=== PATIENT | female | born 1965 | race Two or more races ===

== ENCOUNTER 2024-03-07 18:26 | Emergency (ER) | payer BC ==
[2024-03-07] MEDS: cloNIDine HCL 0.1 MG TAB PO ONE (19:30)
[2024-03-07 19:38] VITALS: BP 170/90; PULSE 86; RESP 18; TEMP 99.4; O2SAT 98
[2024-03-07 20:06] LABS: Chloride 103 mmol/L (98-107); Potassium 3.4 mmol/L (3.5-5.1); Sodium 140 mmol/L (136-145)
[2024-03-07 20:07] LABS: Anion Gap 8 (5-15); Carbon Dioxide 29 mmol/L (20-30)
[2024-03-07 20:08] LABS: Calcium 10.2 mg/dL (8.5-10.1)
[2024-03-07 20:09] LABS: Basophils # (auto) 0.1 10 ^3/uL (0-0.2); Basophils % (auto) 0.5 % (0.0-2.0); Eosinophils # (auto) 0.1 10 ^3/uL (0-0.8); Hematocrit 46.1 % (36.0-46.0); Hemoglobin 15.9 g/dL (12.2-16.2); Lymphocytes # (auto) 0.9 10 ^3/uL (0.4-5.4); Lymphocytes % (auto) 8.9 % (10.0-50.0); Mean Corpuscular Hemoglobin 30.1 pg (28.0-32.0); Mean Corpuscular Hgb Conc. 34.4 g/dL (32.0-36.0); Mean Corpuscular Volume 87.6 fL (80.0-100.0); Monocytes # (auto) 0.4 10 ^3/uL (0-1.3); Neutrophils # (auto) 8.9 10 ^3/uL (1.6-8.6); Neutrophils % (auto) 85.6 % (37.0-80.0); Red Blood Cells 5.27 10^6/uL (4.0-5.20); Red Cell Distribution Width 13.6 % (11.8-14.3); White Blood Cell 10.3 10^3/uL (4.4-10.8)
[2024-03-07 20:13] LABS: BUN/Creatinine Ratio 17.5 (10.0-20.0); Blood Urea Nitrogen 11 mg/dL (9-23); Glucose 94 mg/dL (74-106)
[2024-03-07 20:36] LABS: Urine Bacteria FEW /hpf (None Seen); Urine Blood 3+ /uL (Negative); Urine Clarity Turbid (Clear); Urine Color Light-Red (Yellow); Urine Protein, UAD 2+ (Negative); Urine Specific Gravity 1.004 (1.001-1.035); Urine Urobilinogen Normal (Negative); Urine WBC 85 /hpf (0 - 5)
[2024-03-07] MEDS: cefTRIAXone SOD 1,000 MG VL IM ONE (21:12)
[2024-03-07] MEDS: NITROFURANTOIN 100 mg CAP PO ONE (21:12)
[2024-03-07] MEDS: LIDOCAINE 1% HCL (LOCAL ANESTH.) INJ 20ML MDV ONE (21:17)
[2024-03-07] MEDS ORDERED: CLON0.2T PO (21:25)
[2024-03-07] MEDS ORDERED: NITR-87 PO (21:25)
== END 2024-03-07 21:34 | disposition home or self-care (01) ==
LOC: ER 18:29
DX: N39.0 Urinary tract infection, site not specified (principal); R03.0 Elevated blood-pressure reading, without diagnosis of hypertension
CPT/HCPCS: 36415; 80048; 81001; 83880; 84484; 85025; 96372; 99283; J0696; J2001